=== PATIENT | female | born 1985 | race Caucasian/White ===

== ENCOUNTER 2021-03-25 19:55 | Emergency (ER) | payer OTHER ==
[~2021-03-25 19:55] MED LIST: LODINE CAP 300300 MG PO; NORFLEX 100 MG100 MG PO; PREDNISONE50 MG PO; ROBITUSSIN DM473 ML PO; Voltaren Gel 1 % TOP; ZYRTEC10 M3 PO
== END 2021-03-25 21:52 | disposition home or self-care (01) ==
LOC: ER1 19:55
DX: Z20.822 Contact with and (suspected) exposure to COVID-19 (principal)
CPT/HCPCS: 99283; U0003